=== PATIENT | female | born 1945 | race Caucasian/White ===

== ENCOUNTER 2017-11-02 17:11 | Inpatient (IN) | payer MEDICARE, MEDICAID ==
[~2017-11-02] VITALS: Ht 175.3 cm; Wt 83.2 kg
[~2017-11-02 17:11] MED LIST: AMIT-189 PO; ASPI-41 PO; BACL10TA PO; CLOP75TA35 PO; CYAN10007 IM; DEXL60CA3 PO; GABA-338 PO; HYDR-3972 PO; INSU100I12 SQ; LEVO112T5 PO; SIMV40TA4 PO
[2017-11-02 18:16] LABS: BASOPHILS % (AUTO) 0.3 % (0-1); EOSINOPHILS % (AUTO) 0.2 % (0-6); HEMATOCRIT 33.3 % (35.0-45.0); HEMOGLOBIN 11.5 g/dl (12.0-16.0); LYMPHOCYTES # (AUTO) 0.6 X10'3 (1.1-4.8); LYMPHOCYTES % (AUTO) 30.8 % (21-51); MEAN CORPUSCULAR HEMOGLOBIN 29.2 PG (27.0-31.0); MEAN CORPUSCULAR HGB CONC 34.5 % (33.0-36.5); MEAN CORPUSCULAR VOLUME 84.7 FL (78-98); MONOCYTES # (AUTO) 0.2 X10'3 (0-0.9); MONOCYTES % (AUTO) 8.1 % (2-12); NEUTROPHILS # (AUTO) 1.2 X10'3 (1.8-7.7); NEUTROPHILS % (AUTO) 60.6 % (42-75); PLATELET COUNT 56 X10'3 (140-440); RED BLOOD COUNT 3.93 X10'6 (4.20-5.60); RED CELL DISTRIBUTION WIDTH 14.3 % (11.5-14.5); WHITE BLOOD COUNT 2.1 X10'3 (4.5-11.0)
[2017-11-02 18:24] LABS: INR 1.1 INR; PARTIAL THROMBOPLASTIN TIME 23 SECONDS (22-32); PROTHROMBIN TIME 11.4 SECONDS (9.0-12.0)
[2017-11-02 18:29] LABS: ALANINE AMINOTRANSFERASE 28 U/L (12-78); ALBUMIN 2.9 G/DL (3.4-5.0); ALKALINE PHOSPHATASE 203 IU/L (46-116); ASPARTATE AMINO TRANSFERASE 26 U/L (10-37); BLOOD UREA NITROGEN 13 MG/DL (7-18); BUN/CREATININE RATIO 13.8 (6.6-38.0); CALCIUM 8.3 MG/DL (8.5-10.1); CREATININE 0.94 MG/DL (0.40-0.90); GLUCOSE 400 MG/DL (70-104); MAGNESIUM 1.5 MG/DL (1.5-2.4); eGFR 59 ML/MIN
[2017-11-02 18:30] LABS: ALBUMIN/GLOBULIN RATIO 0.9 (1.1-1.5); ANION GAP 8 (8-16); BILIRUBIN,TOTAL 0.8 MG/DL (0.1-1.0); CHLORIDE 104 MMOL/L (99-107); POTASSIUM 3.8 MMOL/L (3.5-5.1); SODIUM 139 MMOL/L (135-145); TOTAL CARBON DIOXIDE 26.7 MMOL/L (24-32); TOTAL PROTEIN 6.2 G/DL (6.4-8.2)
[2017-11-02 18:39] LABS: TOTAL CELLS COUNTED 100
[2017-11-02 18:40] LABS: PLATELET ESTIMATE DECREASED
[2017-11-02] MEDS ORDERED: insulin regular, human 10 units/0.1 ml syringe IV ONE (19:00)
[2017-11-02] MEDS ORDERED: CYAN10006 IM (19:04)
[2017-11-02] MEDS ORDERED: DEXL60CA3 PO (19:04)
[2017-11-02] MEDS ORDERED: AMIT100T2 PO (19:04)
[2017-11-02] MEDS ORDERED: FERR325T39 PO (19:04)
[2017-11-02] MEDS ORDERED: SERT100T PO (19:04)
[2017-11-02] MEDS ORDERED: CARV3.122 PO (19:04)
[2017-11-02] MEDS ORDERED: CLOP75TA15 PO (19:04)
[2017-11-02] MEDS ORDERED: FURO-150 PO (19:07)
[2017-11-02] MEDS ORDERED: LEVO137T2 PO (19:07)
[2017-11-02] MEDS ORDERED: acetaminophen 325mg tablet PO PRN (19:55)
[2017-11-02] MEDS ORDERED: ondansetron/PF 4mg/2ml inj IV PRN (19:55)
[2017-11-02] MEDS ORDERED: magnesium hydroxide 30ml (MOM) UD suspension PO PRN (19:55)
[2017-11-02] MEDS ORDERED: mag hydrox/Alum hydrox/simeth 30ml oral suspension PO PRN (19:55)
[2017-11-02] MEDS: heparin, porcine 5000 units/ml vial SQ SCH (20:00)
[2017-11-02] MEDS ORDERED: glucagon, human recombinant 1mg kit SUBCUT PRN (20:05)
[2017-11-02] MEDS ORDERED: dextrose 50%-water 50ml dispensing syringe IV PRN ×2 (20:05)
[2017-11-02] MEDS ORDERED: insulin Lispro (HumaLOG) vial - multi-dose SQ SCH (20:05)
[2017-11-02] MEDS ORDERED: dextrose ORAL solution 15 GM/59 ML bottle PO PRN ×2 (20:05)
[2017-11-02] MEDS ORDERED: MESSAGE TO PHARMACY PO ONE (20:05)
[2017-11-02 21:00] VITALS: BP 126/64
[2017-11-02] MEDS ORDERED: amitryptiline 50mg tablet PO SCH (21:00)
[2017-11-02] MEDS ORDERED: insulin glargine (Lantus) pen - multi-dose SQ SCH (21:00)
[2017-11-02] MEDS ORDERED: amitriptyline 25mg tablet PO SCH (21:00)
[2017-11-02] MEDS ORDERED: temazepam 15mg capsule PO PRN (22:00)
[2017-11-03 06:11] LABS: BASOPHILS % (AUTO) 0.4 % (0-1); EOSINOPHILS % (AUTO) 0 % (0-6); HEMATOCRIT 33.2 % (35.0-45.0); HEMOGLOBIN 11.4 g/dl (12.0-16.0); LYMPHOCYTES # (AUTO) 0.7 X10'3 (1.1-4.8); LYMPHOCYTES % (AUTO) 40.4 % (21-51); MEAN CORPUSCULAR HEMOGLOBIN 29.4 PG (27.0-31.0); MEAN CORPUSCULAR HGB CONC 34.5 % (33.0-36.5); MEAN CORPUSCULAR VOLUME 85.3 FL (78-98); MEAN PLATELET VOLUME 9.3 FL (7.4-10.4); MONOCYTES # (AUTO) 0.1 X10'3 (0-0.9); MONOCYTES % (AUTO) 6.7 % (2-12); NEUTROPHILS % (AUTO) 52.5 % (42-75); PLATELET COUNT 55 X10'3 (140-440); RED BLOOD COUNT 3.89 X10'6 (4.20-5.60); RED CELL DISTRIBUTION WIDTH 14.6 % (11.5-14.5); WHITE BLOOD COUNT 1.8 X10'3 (4.5-11.0)
[2017-11-03 06:25] LABS: ALANINE AMINOTRANSFERASE 30 U/L (12-78); ALBUMIN 2.8 G/DL (3.4-5.0); ALBUMIN/GLOBULIN RATIO 0.8 (1.1-1.5); ALKALINE PHOSPHATASE 160 IU/L (46-116); ANION GAP 7 (8-16); ASPARTATE AMINO TRANSFERASE 29 U/L (10-37); BILIRUBIN,TOTAL 0.8 MG/DL (0.1-1.0); BLOOD UREA NITROGEN 14 MG/DL (7-18); BUN/CREATININE RATIO 17.1 (6.6-38.0); CALCIUM 8.9 MG/DL (8.5-10.1); CHLORIDE 106 MMOL/L (99-107); CREATININE 0.82 MG/DL (0.40-0.90); GLUCOSE 219 MG/DL (70-104); POTASSIUM 3.6 MMOL/L (3.5-5.1); SODIUM 143 MMOL/L (135-145); TOTAL CARBON DIOXIDE 29.7 MMOL/L (24-32); TOTAL PROTEIN 6.1 G/DL (6.4-8.2); eGFR 69 ML/MIN
[2017-11-03 06:45] LABS: LYMPHOCYTES % (MANUAL) 36 % (21-51); MONOCYTES % (MANUAL) 5 % (2-12); NEUTROPHILS % (MANUAL) 59 % (42-75); PLATELET ESTIMATE DECREASED; TOTAL CELLS COUNTED 100
[2017-11-03 06:46] LABS: SCHISTOCYTES FEW
[2017-11-03] MEDS ORDERED: levoTHYROXINE 112mcg tablet PO SCH (07:00)
[2017-11-03] MEDS ORDERED: levoTHYROXINE 25mcg tablet PO SCH (07:00)
[2017-11-03 07:21] VITALS: BP 112/54
[2017-11-03] MEDS: heparin, porcine 5000 units/ml vial SQ SCH (07:29)
[2017-11-03] MEDS ORDERED: pantoprazole 40mg Tablet.DR PO SCH (07:30)
[2017-11-03] MEDS ORDERED: non-formulary drug (Levothyroxine Sodium 1 TAB) PO SCH (08:00)
[2017-11-03] MEDS ORDERED: non-formulary drug (Sertraline Hcl (Zoloft) 1 TAB) PO SCH (08:00)
[2017-11-03] MEDS ORDERED: non-formulary drug (Dexlansoprazole (Dexilant) 1 CAP) PO SCH (08:00)
[2017-11-03] MEDS ORDERED: sertraline 50mg tablet PO SCH (08:00)
[2017-11-03] MEDS ORDERED: carVEDilol 3.125mg tablet PO SCH (08:00)
[2017-11-03] MEDS ORDERED: furosemide 20MG tablet PO SCH (08:00)
[2017-11-03] MEDS ORDERED: clopidogrel 75mg tablet PO SCH (08:00)
[2017-11-03 10:54] VITALS: BP 116/49
[2017-11-03] MEDS ORDERED: INSU100I25 SQ (14:06)
[2017-11-03] MEDS ORDERED: amitriptyline 25mg tablet PO SCH (21:00)
== END 2017-11-03 14:50 | disposition home health service (06) | DRG 638 ==
LOC: ER 17:11 → ED HOLD 19:54 → ORTHO 4S 20:46
PROVIDERS: ADMIT Internal Medicine; ATTEND Family Medicine
DX: E11.65 Type 2 diabetes mellitus with hyperglycemia (principal); E44.0 Moderate protein-calorie malnutrition; I25.10 Atherosclerotic heart disease of native coronary artery without angina pectoris; G20 Parkinson's disease; E11.42 Type 2 diabetes mellitus with diabetic polyneuropathy; E78.00 Pure hypercholesterolemia, unspecified; I10 Essential (primary) hypertension; G89.29 Other chronic pain; M19.90 Unspecified osteoarthritis, unspecified site; K21.9 Gastro-esophageal reflux disease without esophagitis; I25.2 Old myocardial infarction; Z98.51 Tubal ligation status; Z90.49 Acquired absence of other specified parts of digestive tract; Z90.710 Acquired absence of both cervix and uterus; Z95.1 Presence of aortocoronary bypass graft; Z79.4 Long term (current) use of insulin; Z79.899 Other long term (current) drug therapy; Z88.8 Allergy status to other drugs, medicaments and biological substances; Z68.27 Body mass index [BMI] 27.0-27.9, adult
CPT/HCPCS: 36415; 71045; 80053; 82948; 83036; 83735; 84484; 85025; 85610; 85730; 87070; 92616; 93005; 93306; 96374; 99285; A6213; J1644; J1815